=== PATIENT | male | born 2005 | race Caucasian/White ===

== ENCOUNTER 2025-07-15 20:43 | Emergency (ER) | payer MEDICAID, SELFPAY ==
[2025-07-15 20:44] VITALS: BMI 16.6
[2025-07-15 21:05] VITALS: BP 109/72; PULSE 117; RESP 18; TEMP 38.1; O2SAT 98
--- NOTE | 2025-07-15 21:18 | PD.EDRME ---
Rapid Medical Screening Exam [facility] Arrival date/time: 07/15/25 20:43 20M with history of autism (non-verbal; doesn't take pills) presents to ED with caregiver for 1 day of N/V and non-bloody diarrhea. Patient is from a residential. Chief Complaint: Nausea/Vomiting/Diarrhea Vital signs: Vital Signs Temperature 100.5 F H 07/15/25 21:05 Pulse Rate 117 H 07/15/25 21:05 Respiratory Rate 18 07/15/25 21:05 Blood Pressure 109/72 07/15/25 21:05 Pulse Oximetry (%) 98 07/15/25 21:05 Oxygen Delivery Method Room Air 07/15/25 21:05
[2025-07-15 21:39] LABS: Lactate (Lactic Acid) 2.4 mMol/L (0.4-2.0)
[2025-07-15 21:46] LABS: Basophils # (Auto) 0.0 Thou/mm3 (0.0-0.2); Basophils % (Auto) 0 % (0-2.5); Eosinophils # (Auto) 0.0 Thou/mm3 (0.0-0.5); Eosinophils % (Auto) 0 % (0-10); Hematocrit 42.8 % (41.0-53.0); Hemoglobin 14.9 g/dL (13.5-16.0); Immature Granulocytes Auto 0.05 Thou/mm3 (0.00-0.00); Lymphocytes # (Auto) 0.4 Thou/mm3 (1.0-4.8); Lymphocytes % (Auto) 4 % (10-50); Mean Corpuscular HGB Conc 34.8 g/dl (31.0-37.0); Mean Corpuscular Hemoglobin 28.9 pg (25.0-35.0); Mean Corpuscular Volume 83 fL (80-100); Monocytes # (Auto) 0.5 Thou/mm3 (0.0-0.8); Monocytes % (Auto) 4 % (0-12); Neutrophils # (Auto) 10.5 Thou/mm3 (1.8-7.7); Neutrophils % (Auto) 91 % (37-80); Nucleated Red Blood Cell # 0.00 Thou/mm3 (0.00-0.00); Nucleated Red Blood Cell % 0 /100 WBC (0); Platelet Count 314 Thou/mm3 (140-440); RDW Standard Deviation 38.7 fL (35.1-43.9); Red Blood Count 5.16 Miln/mm3 (4.50-5.90); White Blood Count 11.5 Thou/mm3 (3.8-10.6)
[2025-07-15 22:41] LABS: Anion Gap 15 (7-16); Blood Urea Nitrogen 17 mg/dL (9-23); Carbon Dioxide 24.4 mMol/L (20.0-31.0); Chloride 101 mMol/L (98-107); Creatinine (Component) 0.9 mg/dL (0.6-1.3); Potassium 3.7 mMol/L (3.4-5.1); Sodium 140 mMol/L (136-145)
[2025-07-15 22:42] LABS: Alanine Aminotransferase 13 U/L (10-49); Albumin, Serum 5.2 gm/dL (3.5-5.0); Albumin/Globulin Ratio 1.9 (1.2-2.2); Alkaline Phosphatase 96 U/L (46-116); Aspartate Amino Transferase 20 U/L (0-34); BUN/Creatinine Ratio 19 Ratio (12-20); Bilirubin,Total 1.8 mg/dL (0.3-1.2); Calcium 10.4 mg/dL (8.3-10.6); Calcium (Corrected) 10.4 mg/dL (8.5-10.1); Estimated Creatinine Clearance 83.3 mL/min (>60); Globulin 2.7 gm/dL (2.3-3.5); Glucose 115 mg/dL (74-106); Lipase 23 U/L (12-53); Osmolality,Calculated 281 (275-295); Procalcitonin 0.38 ng/ml (0.0-0.49); Total Protein 7.9 gm/dL (5.7-8.2); eGFR > 60 See Note
[2025-07-15 22:58] VITALS: BP 95/60; PULSE 108; RESP 22; TEMP 37; O2SAT 97
[2025-07-15 23:08] VITALS: BP 119/76
[2025-07-15 23:35] VITALS: TEMP 38.5
[2025-07-15] MEDS: ACETAMINOPHEN SUPP 650 MG SUPP PR (23:35)
[2025-07-15] MEDS: SODIUM CHLORIDE 0.9% 1000 ML 1,000 ML 999 ML IV (23:35)
[2025-07-15 23:47] LABS: Collection Type, Urine Catheter
[2025-07-15 23:57] LABS: Bilirubin,Urine Negative (Negative); Blood,Urine Negative (Negative); Clarity,Urine Clear (Clear/Hazy); Color,Urine Yellow (Lt Yel-Yel); Culture Indicated,Urine Not Indicated; Glucose, Urine Negative (Negative); Hyaline Casts,Urine < 1 /hpf (0-1); Ketones,Urine 2+ (Negative); Leukocyte Esterase,Urine Negative (Negative); Nitrite,Urine Negative (Negative); PH,Urine 7.0 (5.0-7.0); Protein,Urine Trace (Neg - Trace); RBC,Urine 3 /hpf (0-3); Specific Gravity,Urine 1.035 (1.001-1.035); Squamous Epithelial Cell,Urine < 1 /hpf (0-5); Urobilinogen,Urine Negative mg/dL (0.0-1.0); WBC,Urine 5 /hpf (0-5)
[2025-07-16 00:04] LABS: Amphetamine/Methamp Scrn,U Negative (Negative); Barbiturate Screen,Urine Negative (Negative); Benzodiazepines Screen,Urine Negative (Negative); Benzoylecgonine Screen, Ur Negative (Negative); Fentanyl Screen,Urine Negative (Negative); Opiate Screen,Urine Negative (Negative); THC Screen,Urine Negative (Negative)
--- NOTE | 2025-07-16 00:30 | XR_ITS ---
Examination: AP chest single view TECHNIQUE: AP portable semiupright chest single view Date and time: July 16, 2025, 0038 hours INDICATIONS: Sepsis alert today with chest pain. FINDINGS: Normal heart size. No pneumonia or pulmonary edema. Severe thoracic dextroscoliosis IMPRESSION: No active disease.
--- NOTE | 2025-07-16 00:31 | PD.EDFEVER ---
ED Fever RME/HPI General Chief Complaint: Nausea/Vomiting/Diarrhea Stated Complaint: NAUSEA VOMITING AND DIARRHEA Arrival date/time: 07/15/25 20:43 RME / HPI RME / HPI Narrative: 07/15/25 20:43 20M with history of autism (non-verbal; doesn't take pills) presents to ED with caregiver for 1 day of N/V and non-bloody diarrhea. Patient is from a shelter. DR. PRERY MAIN ED EVALUATION: Patient is severely debilitated with Hx of autism presents with acute febrile illness x 24 hours and several episodes of vomiting and diarrhea. No report of abdominal distention or gesturing towards abdomen observed. No malodorous urine or cold, cough, and congestive symptoms. Related Data Previous Rx's ?Medication ?Instructions ?Recorded ondansetron 4 mg disintegrating 4 mg PO Q8H #14 tabs 10/09/22 tablet acetaminophen 160 mg/5 mL oral 640 mg (20 mL) PO QID PRN fever or 07/16/25 elixir pain #473 mL amoxicillin 250 mg-potassium 10 ml PO TID 10 days #300 mL 07/16/25 clavulanate 62.5 mg/5 mL oral suspension (Augmentin) prednisolone 15 mg/5 mL oral 45 mg (15 mL) PO QDAY 5 days #75 mL 07/16/25 solution Allergies Allergy/AdvReac Type Severity Reaction Status Date / Time soy Allergy Verified 07/15/25 20:47 Review of Systems Review of Systems Systems Reviewed: All systems reviewed, normal except as documented Past Medical History Past Medical History OTHER HISTORY: Positive Autism Social History SMOKING STATUS: Never smoker Physical Exam Narrative Physical exam: GEN. APPEARANCE: The patient is alert awake oriented X-3 in no distress, lying down comfortably, does not look ill/toxic. Patient has good eye contact. Patient is cooperative. VITALS: All vitals were reviewed and the pulse ox is 91% on room air which is normal according to my interpretation. HEENT: Normocephalic, atraumatic. Pupils are equal and reactive. Oral mucosa is moist. 2+ injection exudates, slightly edematous uvula, no asymmetry. Patent Nares. NECK: Supple, nontender, no thyromegaly, no meningismus, no JVD, no step offs CHEST: Symmetrical, atraumatic, and with equal expansion , Nontender on palpation no deformity and no crepitus. CARDIOVASCULAR: Heart regular rhythm no murmur or gallop rub or extra beats. LUNGS: Clear to auscultation bilaterally with symmetrical chest rise. No laboring tachypnea or wheezing. No intercostal subcostal retraction. No rales and no rhonchi. ABDOMEN: Soft, flat, nontender to palpation, no guarding or rebound tenderness. There are no abnormal masses palpated. Active and normal bowel sounds. EXTREMITIES: Nontender. No edema. No cyanosis. Patient is able to move all 4 extremities well, with full ROM and good CSM. SKIN: Warm and dry, no jaundice or rashes noted. MUSCULOSKELETAL: No lubar or midline bony tenderness. There is no CVA tenderness. No paraspinal muscle spasm or tenderness. NEURO: Patient is HUNTER x 4, Cranial nerves II through XII grossly intact. There is no focal neurologic deficits noted. GCS is 15, PNS and STAMPING OPERATOR appear grossly intact. Alert, nonverbal unable to follow simple commands, with contracted right upper extremity. PSYCHIATRIC: Patient is in normal mood and affect, cooperative, no SI or HI or hallucinations. ED Exam Narrative Physical exam: See above. Course Quality Measures Current suspected stage: sepsis Possible source: unknown Blood cultures ordered: yes Antibiotic ordered: Yes Pertinent labs: 07/15/25 07/16/25 21:29 00:01 Lactic Acid 2.4 H mMol/L 1.9 mMol/L (0.4-2.0) (0.4-2.0) Procalcitonin 0.38 ng/ml (0.0-0.49) sepsis and none Orders Category Date Time Status Bedside COVID-19 Antigen Test NOW Care 07/15/25 21:17 Active Bedside Influenza A&B Antigen Test NOW Care 07/15/25 21:17 Completed In and Out Catheter X1 Care 07/15/25 21:20 Completed Insert IV NOW Care 07/15/25 21:16 Active XR chest 1V portable Stat Exams 07/16/25 00:30 Taken Blood Culture (Lab) Stat Lab 07/16/25 00:09 Received CBC Stat Lab 07/15/25 21:29 Completed CMP [Comprehensive Metabolic Panel] Stat Lab 07/15/25 21:29 Completed Drug Screen,Urine Stat Lab 07/15/25 23:45 Completed Lactate (Lactic Acid) Stat Lab 07/15/25 21:29 Completed Lactic Acid, 3 HR Stat Lab 07/16/25 00:01 Completed Lipase Stat Lab 07/15/25 21:29 Completed Procalcitonin Stat Lab 07/15/25 21:29 Completed Urinalysis, C/S if Indicated Stat Lab 07/15/25 23:45 Completed Acetaminophen Supp [Tylenol Supp] Med 07/15/25 21:16 Discontinued 650 mg MI X1 ONE Dexamethasone Inj [Decadron Inj] 10 mg Med 07/16/25 02:42 Discontinued Sodium Chloride 0.9% [Ns] 50 ml IV X1 Piper/Tazo 3.375 gm Premix [Zosyn] Med 07/16/25 00:29 Discontinued 3.375 gm in 50 ml IV X1 Promethazine Inj [Phenergan Inj] Med 07/15/25 23:59 Discontinued 12.5 mg IM X1 ONE Sodium Chloride 0.9% 1000 ml [Ns] 1,000 ml Med 07/15/25 21:16 Discontinued IV 999 mls/hr Sodium Chloride 0.9% 1000 ml [Ns] 1,000 ml Med 07/16/25 00:00 Discontinued IV 999 mls/hr Vancomycin Inj 1,000 mg Med 07/16/25 01:00 Discontinued Sodium Chloride 0.9% 250 ml [Ns] 250 ml IV X1 Vancomycin Pharmacy to Dose Med 07/16/25 09:00 Pending 1 each IV QDAY Vital Signs Vital signs: Vital Signs Temperature 100.5 F H 07/15/25 21:05 Pulse Rate 117 H 07/15/25 21:05 Respiratory Rate 18 07/15/25 21:05 Blood Pressure 109/72 07/15/25 21:05 Pulse Oximetry (%) 98 07/15/25 21:05 Oxygen Delivery Method Room Air 07/15/25 21:05 Fever MDM Narrative MDM Narrative:: Scribe Attestation: Elisha Hernandez, marco scribing for and in the presence of Dr. ePrry. Provider Notation: Although this document has been carefully reviewed, there may still be some phonetic and other typographical errors. These errors are purely grammatical due to imperfections in the software program and should not be construed in any way to? compromise the substance of the patient's medical care during this visit. Patient is severely debilitated with Hx of autism presents with acute febrile illness x 24 hours and several episodes of vomiting and diarrhea. No report of abdominal distention or gesturing towards abdomen observed. Please see PE findings. Patient notably febrile, tachycardic, tachypneic, entered in sepsis protocol and received dual-ABX and fluids per protocol. Initial lactic marginally elevated but subsequently normalized after IV fluid therapy. Focus of infection appeared to be the pharynx. Patient's vitals stabilized. Will treat with Tylenol Q6 hours, Augmentin, Prelone, and recommended close F/U with PMD in 3-5 days. Diagnoses include pustular pharyngitis, acute febrile illness, disposition take medications as directed, force fluids, and F/U with PMD. Patient data External records reviewed:: [facility] previous records (Reviewed prior ED records from 10/09/22. Patient was seen for Abnormal weight loss.) Clinical information provided by:: parent Social determinants that could affect healthcare access:: housing Patient has the following chronic illnesses:: Autism How is presenting disease/condition affected by chronic disease/condition?: uneffected by Evaluation data The following diagnostics were reviewed and interpreted by me:: lab results and radiology exam(s) Lab and/or radiology exams considered but not ordered:: None Interpretation Summary: RADIOLOGY Chest X-Ray: Pending official radiology report. Medications / Prescriptions Medications or Prescriptions considered but not ordered:: None Medication administrations:: Medication Administration History Pharmacy Consult (Vancomycin Pharmacy To Dose 1 Each Each) 1 each IV QDAY VANGIE Stop: 08/15/25 08:59 Discontinued Medications Acetaminophen (Acetaminophen Supp 650 Mg Supp) 650 mg MI X1 ONE Stop: 07/15/25 21:17 Last Admin: 07/15/25 23:35 Dose: 650 mg Documented By: KIERAN Sodium Chloride (Ns) 1,000 mls @ 999 mls/hr IV .Q1H1M ONE Stop: 07/15/25 22:16 Last Infusion: 07/16/25 00:36 Dose: Infused Documented By: Admin: 07/15/25 23:35 Dose: 999 mls/hr Documented By: KIERAN Sodium Chloride (Ns) 1,000 mls @ 999 mls/hr IV .Q1H1M ONE Stop: 07/16/25 01:00 Last Infusion: 07/16/25 01:45 Dose: Infused Documented By: Admin: 07/16/25 00:44 Dose: 999 mls/hr Documented By: KIERAN Piperacillin/Tazobactam/Dextrose (Zosyn) 3.375 gm in 50 mls @ 100 mls/hr IV X1 ONE Stop: 07/16/25 00:58 Last Infusion: 07/16/25 01:43 Dose: Infused Documented By: Admin: 07/16/25 01:07 Dose: 100 mls/hr Documented By: KIERAN Vancomycin HCl 1,000 mg/ (Sodium Chloride) 250 mls @ 150 mls/hr IV X1 ONE Stop: 07/16/25 02:39 Last Admin: 07/16/25 01:58 Dose: 150 mls/hr Documented By: KIERAN Dexamethasone Sodium Phosphate (10 mg/ Sodium Chloride) 51 mls @ 102 mls/hr IV X1 ONE Stop: 07/16/25 02:43 Promethazine HCl (Promethazine Inj 25 Mg/Ml Vial) 12.5 mg IM X1 ONE; Protocol Stop: 07/16/25 00:00 Last Admin: 07/16/25 00:43 Dose: 12.5 mg Documented By: KIERAN See above if any. Consultations Consultation(s) initiated? (list below): No Diagnosis Fever Differential Diagnosis: cellulitis, fever of unknown origin, gastroenteritis, community acquired pneumonia, pyelonephritis, viral infection, sepsis and influenza Most likely diagnosis given after review of the tests above:: Acute bacterial pharyngitis Admission Indicated Admission indicated?: not indicated Explain why admission is indicated or not indicated:: Patient does not meet admission criteria. Admission Request Was there a request for admission?: No Disposition Plan Disposition Plan: Discharge Discharge Attestation Discharge Attestation: The patient and all family members were given an opportunity to ask questions and understood the discharge instructions. Discharge instructions specifically effects, indications for sooner follow up or return to the emergency department, and the expected course of current diagnosis. Patient condition: Stable Discharge Plan Plan Patient Disposition: HOME (Self Care) Discharge Disposition comment: Stable Prescriptions/Referrals Prescriptions/Med Rec: New acetaminophen 160 mg/5 mL elixir 640 mg PO QID PRN (Reason: fever or pain) Qty: 473 0RF amoxicillin-pot clavulanate [Augmentin] 250-62.5 mg/5 mL suspension for reconstitution 10 ml PO TID 10 Days Qty: 300 0RF prednisolone 15 mg/5 mL solution 45 mg PO QDAY 5 Days Qty: 75 0RF No Action ondansetron 4 mg tablet,disintegrating 4 mg PO Q8H Qty: 14 0RF Referrals: No Primary/Family,Physician [Primary Care Provider] - In 1 week Problem List Clinical Impression: Acute bacterial pharyngitis Patient/Caregiver Discharge Instructions Education Materials: Pharyngitis or Tonsillitis Ch Additional Instructions: Force fluids/medication as directed/Tylenol every 6 hours/primary care in 1 to 2 weeks as needed return if worse Print Language: Malagasy Stand Alone Forms: Lilliam Rose Info., Patient Portal Info Letter
[2025-07-16 00:37] LABS: Reflex Lactate? Y
[2025-07-16 00:42] LABS: Lactic Acid, 3 HR 1.9 mMol/L (0.4-2.0)
[2025-07-16] MEDS: PROMETHAZINE INJ 25 MG/ML VIAL 12.5 MG IM (00:43)
[2025-07-16] MEDS: SODIUM CHLORIDE 0.9% 1000 ML 1,000 ML 999 ML IV (00:44)
[2025-07-16 00:49] VITALS: TEMP 37.6
[2025-07-16] MEDS: PIPER/TAZO 3.375 GM PREMIX 3.375 GM/50 ML BAG IV (01:07)
[2025-07-16] MEDS: Vancomycin Inj 1,000 MG in SODIUM CHLORIDE 0.9% 250 ML 250 ML 150 MG IV (01:58)
[2025-07-16 03:31] VITALS: BP 100/66; PULSE 79; RESP 16; O2SAT 100
[2025-07-16] MEDS: DEXAMETHASONE INJ 10 MG in SODIUM CHLORIDE 0.9% 50 ML 102 MG IV (04:10)
[2025-07-16 05:04] VITALS: BP 101/61; PULSE 78; RESP 18; TEMP 37.2; O2SAT 100
== END 2025-07-16 05:06 | disposition home or self-care (01) ==
PROVIDERS: Physician Assistant; Emergency Provider Emergency Medicine
DX: J02.8 Acute pharyngitis due to other specified organisms (principal); B96.89 Other specified bacterial agents as the cause of diseases classified elsewhere; R07.9 Chest pain, unspecified
CPT/HCPCS: 51701; 36415; 71045; 80053; 80307; 81001; 83605; 83690; 84145; 85025; 87040; 87400; 87811; 96361; 96365; 96366; 96372; 99284; J1100; J2543; J2550; J3373; J7030; J7050; A9270

== ENCOUNTER 2025-09-07 08:19 | Emergency (ER) | payer MEDICAID, SELFPAY ==
[2025-09-07 08:19] VITALS: BMI 17.4
[2025-09-07 08:37] VITALS: BP 133/84; PULSE 120; RESP 18; TEMP 36.7; O2SAT 97
--- NOTE | 2025-09-07 08:47 | XR_ITS ---
EXAMINATION: PA lateral chest 2 views TECHNIQUE: Upright PA lateral chest 2 views Date and time: September 07, 2025, 0857 hours INDICATIONS: Chest pain shortness of breath fever beginning 3 days ago. FINDINGS: Normal heart size. Lungs are clear. Severe thoracic dextroscoliosis IMPRESSION: No pneumonia or pulmonary edema
--- NOTE | 2025-09-07 08:59 | EDNOTE_ITS ---
<Statement entered by Mi Auguste MD - 09/07/25 12:29> As co-signing physician, I was present and available for consult prn. I concur with the plan and care as documented by the midlevel provider. ED General RME/HPI General Chief complaint: General Adult/Misc Complain Stated complaint: HASN'T BEEN SLEEPING FOR DAYS, RED EYES Time Seen by Provider: 09/07/25 10:10 Source: family Arrival date/time: 09/07/25 08:19 20-year-old male with no known medical history presents to the emergency room with a chief complaint of irritability and fevers x 3 days Mode of arrival: ambulatory Limitations: no limitations Related Data Previous Rx's ?Medication ?Instructions ?Recorded ondansetron 4 mg disintegrating 4 mg PO Q8H #14 tabs 1 12/09/21 tablet acetaminophen 160 mg/5 mL oral 640 mg (20 mL) PO QID P RN fever or 07/16/25 elixir pain #473 mL Allergies Allergy/AdvReac Type Severity Reaction Status Date / Time soy Allergy Verified 09/07/25 08:24 Review of Systems Review of Systems Systems Reviewed: All systems reviewed, normal except as documented Constitutional Constitutional: Reports system reviewed and no additional complaints, except as documented, Denies fatigue, Denies fever(s), Denies headache(s) and Denies weakness Eyes Eyes: Reports system reviewed and no additional complaints, except as documented, Denies blurry vision and Denies change in vision ENT Ears, Nose, Mouth, and Throat: Reports system reviewed and no additional complaints, except as documented, Denies otalgia, Denies headache(s), Denies nasal congestion, Reports sore throat, Denies throat swelling and Denies vertigo Cardiovascular Cardiovascular: Reports system reviewed and no additional complaints, except as documented, Denies chest pain, Denies dyspnea and Denies dyspnea on exertion Respiratory Respiratory: Reports system reviewed and no additional complaints, except as documented, Denies chest congestion, Denies cough, Denies dyspnea, Denies dyspnea on exertion and Denies wheezing Gastrointestinal Gastrointestinal: Reports system reviewed and no additional complaints, except as documented, Denies abdominal pain, Denies cramping, Denies nausea and Denies vomiting Genitourinary Genitourinary: Reports system reviewed and no additional complaints, except as documented, Denies dysuria and Denies hematuria Musculoskeletal Musculoskeletal: Reports system reviewed and no additional complaints, except as documented and Denies back pain Integumentary/Breasts Skin/Breast: Reports system reviewed and no additional complaints, except as documented and Denies wounds Neurologic Neurologic: Reports system reviewed and no additional complaints, except as documented, Denies confusion, Denies headache(s), Denies lack of coordination, Denies vertigo and Denies weakness Psychiatric Psychiatric: Reports system reviewed and no additional complaints, except as documented, Denies anxiety, Denies confusion, Denies depression, Denies paranoia, Denies suicidal ideation and Denies tactile hallucinations Endocrine Endocrine: Reports system reviewed and no additional complaints, except as documented and Denies fatigue Hematologic/Lymphatic Hematologic/Lymphatic: Reports system reviewed and no additional complaints, except as documented and Denies lymphadenopathy Allergic/Immunologic Allergic/Immunologic: Reports system reviewed and no additional complaints, except as documented, Denies throat swelling, Denies urticaria and Denies wheezing ED Exam General Limitations: Present no limitations General appearance: Present alert and in no apparent distress Head Head exam: Present atraumatic Eye Eye exam: Present normal appearance, PERRL and EOMI ENT ENT exam: Present normal exam, normal oropharynx and mucous membranes moist Expanded ENT Exam External ear exam: Present normal external inspection Mouth exam: Present normal external inspection; Absent trismus Teeth exam: Present normal inspection Throat exam: Absent tonsillar erythema, tonsillar exudate, R peritonsillar mass, L peritonsillar mass or muffled voice Neck Neck exam: Present normal inspection, full ROM and trachea midline Chest Chest inspection: Present normal inspection and symmetric chest wall rise Respiratory Respiratory exam: Present normal lung sounds bilaterally; Absent respiratory distress, wheezes, stridor, accessory muscle use or prolonged expiratory phase Cardiovascular Cardiovascular exam: Present regular rate, normal rhythm and normal heart sounds; Absent tachycardia Abdominal Exam Abdominal exam: Present soft and normal bowel sounds Extremities Exam Extremities exam: Present normal inspection and full ROM Back Exam Back exam: Present normal inspection and full ROM Neurological Exam Neurological exam: Present alert, oriented X3 and CN II-XII intact Psychiatric Psychiatric exam: Present normal affect and normal mood Skin Skin exam: Present warm, dry, intact and normal color Course Quality Measures none Orders Category Date Time Status Bedside COVID-19 Antigen Test NOW Care 09/07/25 08:47 Completed XR chest 2V Stat Exams 09/07/25 08:47 Completed Influenza A & B Rapid Panel Stat Lab 09/07/25 08:54 Completed Strep A Rapid Stat Lab 09/07/25 08:54 Completed Vital Signs Vital signs: Vital Signs Temperature 98.0 F 09/07/25 08:37 Pulse Rate 120 H 09/07/25 08:37 Respiratory Rate 18 09/07/25 08:37 Blood Pressure 133/84 H 09/07/25 08:37 Pulse Oximetry (%) 97 09/07/25 08:37 Oxygen Delivery Method Room Air 09/07/25 08:37 Discharge Plan Plan Patient Disposition: HOME (Self Care) Discharge Disposition comment: Stable Prescriptions/Referrals Prescriptions/Med Rec: No Action ondansetron 4 mg tablet,disintegrating 4 mg PO Q8H Qty: 14 0RF acetaminophen 160 mg/5 mL elixir 640 mg PO QID PRN (Reason: fever or pain) Qty: 473 0RF Referrals: Nba Bagley FNP [Primary Care Provider] - In 1 week Problem List Clinical Impression: Upper respiratory infection, viral Patient/Caregiver Discharge Instructions Education Materials: ED URI, Viral, No Abx (Adult) Additional Instructions: Please follow-up with your primary care provider in the next 24 to 48 hours. You tested negative for influenza, COVID-19, strep The treatment for this is symptom management. Please continue to take Tylenol and ibuprofen for fever management. Please increase your oral fluid intake. For any evidence of worsening signs or symptoms please return to the emergency room immediately Print Language: Malay Stand Alone Forms: Lilliam Award Info., Work/School Release, Patient Portal Info Letter MIHIR/MYA Supervising Physician MIHIR/MYA Supervising Physician: Dr. Herrera MDM Narrative [facility] hospital course (for use when minimal MDM required): 20-year-old male with no known medical history presents to the emergency room with a chief complaint of irritability and fevers x 3 days Patient is hemodynamically stable and in no apparent distress. Patient is afebrile not tachypneic not tachycardic Physical examination shows clear bilateral lung sounds there is no wheezing there is no abnormal breath sounds. The patient has a soft nontender abdomen. Patient has a strong and regular rhythm S1 and S2 noted. Patient has a nonerythemic posterior pharynx there is no exudates Influenza, COVID-19, strep test were negative for any acute findings. Chest x- ray was negative for any pneumonic infiltrates Patient was discharged and educated to follow-up with primary care provider in the next 24 to 48 hours and return to the emergency room for any evidence of worsening signs or symptoms Clinical Information Provided by: none and guardian Medical Records reviewed None Meds/Rx considered, not ordered None Labs/Rad/Tests considered, not ordered None Chronic Illness/Social Conditions which may negatively complicate care or outcome(s)-explain: None or not applicable and Developmentally delayed EKG EKG not done Labs Labs: none Imaging Imaging interpretation: none Medication Administration(s) none Diagnosis Differential Diagnosis ED Complaint MDM: Upper respiratory infection/influenza/COVID-19/pneumonia Diagnoses ruled out and/or further discussions: Influenza/COVID-19/pneumonia
[2025-09-07 09:32] LABS: Strep A Rapid Negative (Negative)
[2025-09-07 09:36] LABS: Influenza A Ag Negative; Influenza B Ag Negative
[2025-09-07 11:06] VITALS: BP 118/78; PULSE 77
== END 2025-09-07 11:29 | disposition home or self-care (01) ==
PROVIDERS: Nurse Practitioner Family; Emergency Provider Emergency Medicine; PCP Nurse Practitioner Family
DX: J06.9 Acute upper respiratory infection, unspecified (principal)
CPT/HCPCS: 71046; 87502; 87651; 87811; 99281